=== PATIENT | male | born 1955 | race Caucasian/White ===

== ENCOUNTER → 2021-03-27 | Outpatient (CLI) | payer BC ==
[~2021-03-27] MED LIST: AMLO1CAP4 PO; HYDR-34 PO
--- NOTE | 2021-03-27 10:24 | Diagnostic Imaging Report ---
PROCEDURE: MR imaging cervical spine without contrast. TECHNIQUE: Multiplanar, multisequence MR imaging of the cervical spine was performed without contrast. INDICATION: Neck pain. COMPARISON: none. FINDINGS: No acute fracture or dislocation is seen in the cervical spine. There is normal alignment of the cervical spine. The vertebral body heights and disc spaces are well maintained. The bone marrow signal is unremarkable. No focal osseous lesions. The craniocervical junction is maintained. The cervical spinal cord demonstrates normal intrinsic signal. No epidural collections are seen. The included brainstem and posterior fossa have normal appearance. Multilevel degenerative changes are seen in the cervical spine with posterior disc bulges and uncovertebral arthropathy. C2-C3: No significant spinal canal or foraminal stenosis. C3-C4: Posterior disc bulge, uncovertebral arthropathy, and buckling of ligamentum flavum results in moderate to severe spinal canal stenosis and moderate right and qtqi-ry-ytuhacrt left foraminal stenosis. C4-C5: Posterior disc bulge, uncovertebral arthropathy, and buckling of ligamentum flavum results in severe spinal canal stenosis and qqdz-cs-vuwlviru right and moderate left foraminal stenosis. C5-C6: Posterior disc bulge, uncovertebral arthropathy, and buckling of the ligamentum flavum results in severe spinal canal stenosis and mild bilateral foraminal narrowing. C6-C7: Posterior disc bulge, uncovertebral arthropathy, and buckling of the ligamentum flavum results in moderate to severe spinal canal stenosis and mild right and mjoq-tl-iwbskjbw left foraminal narrowing. C7-T1: No significant spinal canal or foraminal stenosis. The soft tissues of neck are unremarkable. IMPRESSION: 1. No acute fracture or dislocation of the cervical spine. 2. Multilevel degenerative changes in the cervical spine, greatest at C3-C4, C4-C5, C5-C6, and C6-C7. Dictated by: Dictated on workstation # [id number]
== END ==
LOC: RAD 09:06
PROVIDERS: ATTEND Family Medicine
DX: M47.812 Spondylosis without myelopathy or radiculopathy, cervical region (principal)
CPT/HCPCS: 72141

== ENCOUNTER → 2021-12-19 | Outpatient (CLI) | payer BC | LOC: LAB FS 10:01 | PROVIDERS: ATTEND Orthopaedic Surgery Orthopaedic Trauma | DX: Z01.812 Encounter for preprocedural laboratory examination (principal); Z20.822 Contact with and (suspected) exposure to COVID-19 | CPT/HCPCS: 87636 ==

== ENCOUNTER → 2022-04-06 | Outpatient (CLI) | payer BC ==
[2022-04-06 17:14] LABS: BASOPHILS # (AUTO) 0.1 10^3/uL (0.0-0.1); BASOPHILS % (AUTO) 1 % (0-10); EOSINOPHILS # (AUTO) 0.9 10^3/uL (0.0-0.3); EOSINOPHILS % (AUTO) 7 % (0-10); HEMATOCRIT 40 % (40-54); HEMOGLOBIN 13.2 g/dL (13.3-17.7); LYMPHOCYTES # (AUTO) 2.4 10^3/uL (1.0-4.0); LYMPHOCYTES % (AUTO) 18 % (12-44); MEAN CORPUSCULAR HEMOGLOBIN 28 pg (25-34); MEAN CORPUSCULAR HGB CONC 33 g/dL (32-36); MEAN CORPUSCULAR VOLUME 86 fL (80-99); MEAN PLATELET VOLUME 10.5 fL (9.0-12.2); MONOCYTES # (AUTO) 1.4 10^3/uL (0.0-1.0); MONOCYTES % (AUTO) 11 % (0-12); NEUTROPHILS # (AUTO) 8.2 10^3/uL (1.8-7.8); NEUTROPHILS % (AUTO) 62 % (42-75); PLATELET COUNT 321 10^3/uL (130-400); WHITE BLOOD COUNT 13.2 10^3/uL (4.3-11.0)
[2022-04-06 17:56] LABS: ALBUMIN 3.8 GM/DL (3.2-4.5); BILIRUBIN,TOTAL 0.2 MG/DL (0.1-1.0); CALCIUM 8.9 MG/DL (8.5-10.1); CREATININE SERUM 0.8 MG/DL (0.60-1.30); POTASSIUM 3.7 MMOL/L (3.6-5.0); TOTAL PROTEIN 6.9 GM/DL (6.4-8.2)
[2022-04-06 18:02] LABS: ERYTHROCYTE SEDIMENTATION RATE 15 MM/HR (0-30)
== END ==
LOC: IHC 17:01
PROVIDERS: ATTEND Orthopaedic Surgery Orthopaedic Trauma
DX: I10 Essential (primary) hypertension (principal)
CPT/HCPCS: 80053; 85025; 85652; 86141

== ENCOUNTER → 2022-04-13 | Outpatient (CLI) | payer BC ==
[2022-04-13 17:35] LABS: ALBUMIN 4.1 GM/DL (3.2-4.5); BILIRUBIN,TOTAL 0.2 MG/DL (0.1-1.0); CALCIUM 8.9 MG/DL (8.5-10.1); CREATININE SERUM 0.73 MG/DL (0.60-1.30); POTASSIUM 4.7 MMOL/L (3.6-5.0); TOTAL PROTEIN 6.9 GM/DL (6.4-8.2)
== END ==
LOC: IHC 16:39
PROVIDERS: ATTEND Internal Medicine Infectious Disease
DX: T84.296A Other mechanical complication of internal fixation device of vertebrae, initial encounter (principal)
CPT/HCPCS: 80053; 86141

== ENCOUNTER → 2022-04-14 | Outpatient (CLI) | payer BC ==
[2022-04-14 14:20] LABS: BASOPHILS # (AUTO) 0.1 10^3/uL (0.0-0.1); BASOPHILS % (AUTO) 1 % (0-10); EOSINOPHILS # (AUTO) 0.3 10^3/uL (0.0-0.3); EOSINOPHILS % (AUTO) 3 % (0-10); HEMATOCRIT 42 % (40-54); HEMOGLOBIN 13.6 g/dL (13.3-17.7); LYMPHOCYTES # (AUTO) 1.9 10^3/uL (1.0-4.0); LYMPHOCYTES % (AUTO) 17 % (12-44); MEAN CORPUSCULAR HEMOGLOBIN 28 pg (25-34); MEAN CORPUSCULAR HGB CONC 32 g/dL (32-36); MEAN CORPUSCULAR VOLUME 88 fL (80-99); MEAN PLATELET VOLUME 9.4 fL (9.0-12.2); MONOCYTES # (AUTO) 0.8 10^3/uL (0.0-1.0); MONOCYTES % (AUTO) 7 % (0-12); NEUTROPHILS # (AUTO) 8.2 10^3/uL (1.8-7.8); NEUTROPHILS % (AUTO) 72 % (42-75); PLATELET COUNT 400 10^3/uL (130-400); WHITE BLOOD COUNT 11.4 10^3/uL (4.3-11.0)
[2022-04-14 14:47] LABS: ERYTHROCYTE SEDIMENTATION RATE 19 MM/HR (0-30)
== END ==
LOC: IHC 14:02
PROVIDERS: ATTEND Family Medicine
DX: T84.296A Other mechanical complication of internal fixation device of vertebrae, initial encounter (principal); Z79.2 Long term (current) use of antibiotics; B95.61 Methicillin susceptible Staphylococcus aureus infection as the cause of diseases classified elsewhere; N40.0 Benign prostatic hyperplasia without lower urinary tract symptoms
CPT/HCPCS: 85025; 85652

== ENCOUNTER → 2022-04-21 | Outpatient (CLI) | payer BC ==
[2022-04-21 16:05] LABS: HEMATOCRIT 37 % (40-54); HEMOGLOBIN 11.9 g/dL (13.3-17.7); MEAN CORPUSCULAR HEMOGLOBIN 28 pg (25-34); MEAN CORPUSCULAR HGB CONC 32 g/dL (32-36); MEAN CORPUSCULAR VOLUME 88 fL (80-99); MEAN PLATELET VOLUME 10.7 fL (9.0-12.2); PLATELET COUNT 372 10^3/uL (130-400); WHITE BLOOD COUNT 11.2 10^3/uL (4.3-11.0)
[2022-04-21 16:06] LABS: BASOPHILS # (AUTO) 0.1 10^3/uL (0.0-0.1); BASOPHILS % (AUTO) 1 % (0-10); EOSINOPHILS # (AUTO) 0.8 10^3/uL (0.0-0.3); EOSINOPHILS % (AUTO) 7 % (0-10); LYMPHOCYTES # (AUTO) 2.1 X 10^3 (1.0-4.0); LYMPHOCYTES % (AUTO) 18 % (12-44); MONOCYTES % (AUTO) 9 % (0-12); NEUTROPHILS # (AUTO) 7.1 X 10^3 (1.8-7.8); NEUTROPHILS % (AUTO) 64 % (42-75)
[2022-04-21 16:07] LABS: ALKALINE PHOSPHATASE 73 U/L (40-136); BILIRUBIN,TOTAL 0.2 MG/DL (0.1-1.0); BUN/CREATININE RATIO 12; CARBON DIOXIDE 26 MMOL/L (21-32); CHLORIDE 99 MMOL/L (98-107); CREATININE SERUM 0.69 MG/DL (0.60-1.30); ERYTHROCYTE SEDIMENTATION RATE 62 MM/HR (0-30); GFR ESTIMATED 103; GLUCOSE 113 MG/DL (70-105); POTASSIUM 3.8 MMOL/L (3.6-5.0); SODIUM 139 MMOL/L (135-145)
[2022-04-21 16:08] LABS: ALANINE AMINOTRANSFERASE < 5 U/L (0-55); ALBUMIN 3.4 GM/DL (3.2-4.5)
== END ==
LOC: IHC 15:04
PROVIDERS: ATTEND Internal Medicine Infectious Disease
DX: T84.296A Other mechanical complication of internal fixation device of vertebrae, initial encounter (principal); B95.61 Methicillin susceptible Staphylococcus aureus infection as the cause of diseases classified elsewhere
CPT/HCPCS: 80053; 85025; 85652; 86141

== ENCOUNTER → 2022-04-27 | Outpatient (CLI) | payer BC ==
[2022-04-27 12:41] LABS: BASOPHILS # (AUTO) 0.1 10^3/uL (0.0-0.1); BASOPHILS % (AUTO) 1 % (0-10); EOSINOPHILS # (AUTO) 0.6 10^3/uL (0.0-0.3); EOSINOPHILS % (AUTO) 7 % (0-10); HEMATOCRIT 40 % (40-54); HEMOGLOBIN 12.9 g/dL (13.3-17.7); LYMPHOCYTES # (AUTO) 1.7 10^3/uL (1.0-4.0); LYMPHOCYTES % (AUTO) 18 % (12-44); MEAN CORPUSCULAR HEMOGLOBIN 28 pg (25-34); MEAN CORPUSCULAR HGB CONC 32 g/dL (32-36); MEAN CORPUSCULAR VOLUME 88 fL (80-99); MEAN PLATELET VOLUME 8.9 fL (9.0-12.2); MONOCYTES # (AUTO) 0.8 10^3/uL (0.0-1.0); MONOCYTES % (AUTO) 9 % (0-12); NEUTROPHILS # (AUTO) 6.3 10^3/uL (1.8-7.8); NEUTROPHILS % (AUTO) 65 % (42-75); PLATELET COUNT 522 10^3/uL (130-400); WHITE BLOOD COUNT 9.7 10^3/uL (4.3-11.0)
[2022-04-27 13:05] LABS: BILIRUBIN,TOTAL 0.2 MG/DL (0.1-1.0); CALCIUM 9.2 MG/DL (8.5-10.1); CREATININE SERUM 0.85 MG/DL (0.60-1.30); POTASSIUM 4.1 MMOL/L (3.6-5.0)
[2022-04-27 13:06] LABS: ALBUMIN 3.7 GM/DL (3.2-4.5); TOTAL PROTEIN 6.9 GM/DL (6.4-8.2)
[2022-04-27 13:08] LABS: ERYTHROCYTE SEDIMENTATION RATE 37 MM/HR (0-30)
== END ==
LOC: IHC 12:26
PROVIDERS: ATTEND Internal Medicine Infectious Disease
DX: T84.296A Other mechanical complication of internal fixation device of vertebrae, initial encounter (principal)
CPT/HCPCS: 80053; 85025; 85652; 86141

== ENCOUNTER → 2022-05-04 | Outpatient (CLI) | payer BC ==
[2022-05-04 12:52] LABS: BASOPHILS # (AUTO) 0.1 10^3/uL (0.0-0.1); BASOPHILS % (AUTO) 1 % (0-10); EOSINOPHILS # (AUTO) 0.4 10^3/uL (0.0-0.3); EOSINOPHILS % (AUTO) 4 % (0-10); HEMATOCRIT 41 % (40-54); HEMOGLOBIN 13.6 g/dL (13.3-17.7); LYMPHOCYTES # (AUTO) 1.6 10^3/uL (1.0-4.0); LYMPHOCYTES % (AUTO) 20 % (12-44); MEAN CORPUSCULAR HEMOGLOBIN 29 pg (25-34); MEAN CORPUSCULAR HGB CONC 33 g/dL (32-36); MEAN CORPUSCULAR VOLUME 86 fL (80-99); MEAN PLATELET VOLUME 9.4 fL (9.0-12.2); MONOCYTES # (AUTO) 0.7 10^3/uL (0.0-1.0); MONOCYTES % (AUTO) 9 % (0-12); NEUTROPHILS # (AUTO) 5.1 10^3/uL (1.8-7.8); NEUTROPHILS % (AUTO) 65 % (42-75); PLATELET COUNT 430 10^3/uL (130-400); WHITE BLOOD COUNT 7.9 10^3/uL (4.3-11.0)
[2022-05-04 13:16] LABS: ALKALINE PHOSPHATASE 69 U/L (40-136); BILIRUBIN,TOTAL 0.2 MG/DL (0.1-1.0); BUN/CREATININE RATIO 9; CALCIUM 9.3 MG/DL (8.5-10.1); CARBON DIOXIDE 28 MMOL/L (21-32); CHLORIDE 102 MMOL/L (98-107); CREATININE SERUM 0.76 MG/DL (0.60-1.30); GFR ESTIMATED 100; GLUCOSE 86 MG/DL (70-105); POTASSIUM 4.7 MMOL/L (3.6-5.0); SODIUM 140 MMOL/L (135-145)
[2022-05-04 13:17] LABS: ALANINE AMINOTRANSFERASE < 5 U/L (0-55); ALBUMIN 4.3 GM/DL (3.2-4.5); TOTAL PROTEIN 6.6 GM/DL (6.4-8.2)
[2022-05-04 13:38] LABS: BAND NEUTROPHILS 1 %; BASOPHILS % (MANUAL) 0 %; EOSINOPHILS % (MANUAL) 4 %; ERYTHROCYTE SEDIMENTATION RATE 12 MM/HR (0-30); LYMPHOCYTES % (MANUAL) 19 %; MONOCYTES % (MANUAL) 6 %; NEUTROPHILS % (MANUAL) 70 %
== END ==
LOC: IHC 12:37
PROVIDERS: ATTEND Internal Medicine Infectious Disease
DX: T84.63XA Infection and inflammatory reaction due to internal fixation device of spine, initial encounter (principal); B95.61 Methicillin susceptible Staphylococcus aureus infection as the cause of diseases classified elsewhere
CPT/HCPCS: 80053; 85007; 85027; 85652; 86141

== ENCOUNTER → 2022-05-14 | Outpatient (CLI) | payer BC ==
[2022-05-14 10:36] LABS: BASOPHILS # (AUTO) 0.1 10^3/uL (0.0-0.1); BASOPHILS % (AUTO) 0 % (0-10); EOSINOPHILS # (AUTO) 0.4 10^3/uL (0.0-0.3); EOSINOPHILS % (AUTO) 3 % (0-10); HEMATOCRIT 36 % (40-54); HEMOGLOBIN 11.8 g/dL (13.3-17.7); LYMPHOCYTES # (AUTO) 0.8 10^3/uL (1.0-4.0); LYMPHOCYTES % (AUTO) 6 % (12-44); MEAN CORPUSCULAR HEMOGLOBIN 28 pg (25-34); MEAN CORPUSCULAR HGB CONC 33 g/dL (32-36); MEAN CORPUSCULAR VOLUME 85 fL (80-99); MEAN PLATELET VOLUME 9.5 fL (9.0-12.2); MONOCYTES # (AUTO) 1.9 10^3/uL (0.0-1.0); MONOCYTES % (AUTO) 13 % (0-12); NEUTROPHILS # (AUTO) 11.4 10^3/uL (1.8-7.8); NEUTROPHILS % (AUTO) 78 % (42-75); PLATELET COUNT 396 10^3/uL (130-400); WHITE BLOOD COUNT 14.8 10^3/uL (4.3-11.0)
[2022-05-14 11:21] LABS: BAND NEUTROPHILS 7 %; EOSINOPHILS % (MANUAL) 3 %; LYMPHOCYTES % (MANUAL) 8 %; MONOCYTES % (MANUAL) 14 %; NEUTROPHILS % (MANUAL) 68 %
[2022-05-14 11:23] LABS: PLATELET ESTIMATE NORMAL; RBC MORPH NORMAL
[2022-05-14 11:24] LABS: ERYTHROCYTE SEDIMENTATION RATE 60 MM/HR (0-30)
[2022-05-14 12:42] LABS: ALBUMIN 3.2 GM/DL (3.2-4.5); BILIRUBIN,TOTAL 0.2 MG/DL (0.1-1.0); CALCIUM 9.1 MG/DL (8.5-10.1); CREATININE SERUM 0.98 MG/DL (0.60-1.30); POTASSIUM 3.7 MMOL/L (3.6-5.0); TOTAL PROTEIN 6.4 GM/DL (6.4-8.2)
== END ==
LOC: IHC 09:58
PROVIDERS: ATTEND Internal Medicine Infectious Disease
DX: Z45.2 Encounter for adjustment and management of vascular access device (principal); T84.296A Other mechanical complication of internal fixation device of vertebrae, initial encounter; T84.63XA Infection and inflammatory reaction due to internal fixation device of spine, initial encounter; B95.61 Methicillin susceptible Staphylococcus aureus infection as the cause of diseases classified elsewhere; Z98.1 Arthrodesis status
CPT/HCPCS: 80053; 84145; 85007; 85027; 85652; 86141

== ENCOUNTER 2022-05-16 12:03 | Emergency (ER) | payer BC ==
[~2022-05-16] VITALS: Ht 167 cm; Wt 76.0 kg
--- NOTE | 2022-05-16 12:17 | ED Integumentary General ---
General Chief Complaint: Skin/Wound Problems Stated Complaint: WOUND CHECK History of Present Illness Date Seen by Provider: May 16, 2022 Time Seen by Provider: 12:12 Initial Comments 66-year-old male here from clinic. Patient woke up this morning and noted that he had part of his incision on the posterior neck from a surgery done about a month ago opened up and he had some purulent drainage out of it. Patient has been been on antibiotics this whole time. Patient had surgery on his C-spine. He was then noted to have infection and had the surgery and they found that he had infection from the previous surgery. They went in and fix that. And they went posteriorly to sure of his neck and insert rods. Patient has been on IV antibiotics the whole time until about when he switched over to oral antibiotics. He is following with infectious infectious disease. This morning he woke up and felt some drainage down the back of his neck. Appears that in the middle of the incision it opened up. He has been in neck collar all time. Patient previously had a little bit of an elevation in white count. Currently not in any pain. Currently not in having any fever. No current drainage. Timing/Duration: this morning Severity: mild Allergies and Home Medications Allergies Coded Allergies: No Known Drug Allergies (Unverified , 08/14/14) Patient Home Medication List Home Medication List Reviewed: Yes Amlodipine Besylate/Benazepril (Lotrel 5-10 Mg Capsule) 1 Cap Capsule, 1 EACH PO DAILY, (Reported) Entered as Reported by: LIN LAWSON on 08/13/14 1201 Hydrocodone Bit/Acetaminophen (Lortab 7.5 Mg Tablet) 1 Ea Tablet, 1 EA PO Q4H Prescribed by: MIGEL MEDINA on 02/01/15 0912 Review of Systems Review of Systems Constitutional: see HPI Past Xghmwud-Rfknmu-Odkuhp Hx Patient Social History Tobacco Use?: No Past Medical History Reproductive Disorders: No Sexually Transmitted Disease: Yes HIV/AIDS: No Fractures Loss of Vision: Denies Hearing Impairment: Deaf Adverse Reaction/Blood Tranf: No Physical Exam Vital Signs Vital Signs - First Documented 05/16/22 12:09 Temp 36.4 Pulse 77 Resp 16 B/P (MAP) 163/86 (111) Pulse Ox 98 O2 Delivery Room Air Capillary Refill : General Appearance: WD/WN, no apparent distress Neck: non-tender, limited range of motion Skin: normal color, warm/dry, other (On posterior neck there is a small 1cm opening in the middle of the incision. the rest of the incisoin appears to be intact. clear membrane underneath of incision. no purulent drainage currently. appears to be cavernous underneath incision.) Progress/Results/Core Measures Results/Orders Lab Results Laboratory Tests Test 05/16/22 13:50 Range/Units White Blood Count 13.8 H 4.3-11.0 10^3/uL Red Blood Count 4.26 L 4.30-5.52 10^6/uL Hemoglobin 11.9 L 13.3-17.7 g/dL Hematocrit 37 L 40-54 % Mean Corpuscular Volume 86 80-99 fL Mean Corpuscular Hemoglobin 28 25-34 pg Mean Corpuscular Hemoglobin Concent 32 32-36 g/dL Red Cell Distribution Width 14.0 10.0-14.5 % Platelet Count 431 H 130-400 10^3/uL Mean Platelet Volume 8.5 L 9.0-12.2 fL Immature Granulocyte % (Auto) 4 % Neutrophils (%) (Auto) 71 42-75 % Lymphocytes (%) (Auto) 10 L 12-44 % Monocytes (%) (Auto) 11 0-12 % Eosinophils (%) (Auto) 4 0-10 % Basophils (%) (Auto) 1 0-10 % Neutrophils # (Auto) 9.7 H 1.8-7.8 10^3/uL Lymphocytes # (Auto) 1.4 1.0-4.0 10^3/uL Monocytes # (Auto) 1.5 H 0.0-1.0 10^3/uL Eosinophils # (Auto) 0.6 H 0.0-0.3 10^3/uL Basophils # (Auto) 0.1 0.0-0.1 10^3/uL Immature Granulocyte # (Auto) 0.5 H 0.0-0.1 10^3/uL Neutrophils % (Manual) 80 % Lymphocytes % (Manual) 6 % Monocytes % (Manual) 9 % Eosinophils % (Manual) 5 % My Orders Orders - MENDY CORCORAN MD Ct Neck (Soft Tissue) Wo (05/16/22 12:23) Cbc And Manual Diff (05/16/22 13:45) Vital Signs/I&O 05/16/22 05/16/22 12:09 13:30 Temp 36.4 36.4 Pulse 77 71 Resp 16 16 B/P (MAP) 163/86 (111) 140/84 Pulse Ox 98 97 O2 Delivery Room Air Room Air Progress Progress Note : Time: 14:21 Progress Note Placed phone call with [employer]. Dr. MARQUEZ's nurse took a message as Dr. MARQUEZ is in surgery currently. Pending callback. CT Read Date: May 16, 2022 CT Read Time: 13:53 CT Results/Progress Notes [place], [place] NAME: LYRIC MOLINA [employer] REC#: [id number] PT STATUS: REG ER : 1955 PHYSICIAN: MENDY CORCORAN MD ADMIT DATE: 05/16/22/ER FS Draft Date of Exam:05/16/22 CT NECK (SOFT TISSUE) WO CLINICAL INDICATIONS: Surgical wound opened up this morning and drained purulent material. Patient has history of surgery. History of infection with antibiotic intervention. EXAM: Axial CT scan the neck soft tissue without contrast. Sagittal and coronal reformatted images are created. COMPARISON: MRI of the cervical spine without contrast dated 03/27/2021. FINDINGS: There is interval postop changes with C3-C6 anterior cervical disk fusion with C5 corpectomy and interbody strut graft. Interbody disk spacer at C3-C4 level seen. There is posterior spinal fusion hardware seen from the C3-T1 level with bilateral spinal rods and pedicle screws. There is an open wound seen posterior to the neck at the C5 level. There is a small amount of fluid seen adjacent to the C7 and T1 spinous process region. This fluid collection measures roughly 2.1 cm and 1.6 cm in greatest axial dimension at the C7-T1 level. There is no significant fluid in the air-filled cavity spanning from the C3-C6 level. There is mild adjacent fat stranding. There are degenerative spurs involving the visualized upper thoracic spine and upper cervical spine. There is no significant bony central canal narrowing. There is moderate right C3-C4 bony neural foramen narrowing due to facet arthropathy. Visualized upper lung cantu are clear. Partially visualized roughly 7 mm low-density nodule involving left thyroid lobe. IMPRESSION: 1: Compared to prior MRI, there is interval postop changes seen from the C3-T1 level, as described above. There is an open wound in the posterior aspect of the neck which is predominantly filled with air. There is a small amount of fluid in the wound area at the C7-T1 level. There is no evidence of bony erosive or destructive process. There is no concern for osteomyelitis. 2: Cervical spine degenerative disease. 3: There is small low-density nodule involving left thyroid lobe. Nonemergent thyroid ultrasound would better evaluate. Dictated on workstation # [id number] Dict: 05/16/22 1259 Trans: 05/16/22 1309 CV [id number] Interpreted by: LUNA BRANDT MD Electronically signed by: Consults : Consulting Physician: MIRIAM JUARES DO Consults Notes Spoke with Dr. Juares via the [facility] after-hours service. Discussed what was going on with the patient and Dr. Juares said that we would just keep it covered keep and continue his antibiotics and he would follow-up with him in the office on Wednesday or Wednesday. Departure Impression Primary Impression: Open neck wound Qualified Codes: S11.90XA - Unspecified open wound of unspecified part of n brenda, initial encounter Additional Impression: History of cervical spinal surgery Disposition: 01 HOME, SELF-CARE Condition: Stable Departure-Patient Inst. Decision time for Depature: 15:00 Referrals: ADRIENNE SEALS MD (PCP) Primary Care Physician Patient Instructions: Wound Care (DC), Wound Care Add. Discharge Instructions: Keep wound covered and change as the dressing becomes saturated. Call Dr. Juares's office first thing Wednesday morning to schedule appointment. ER as needed for systemic symptoms as discussed. All discharge instructions reviewed with patient and/or family. Voiced understa nding. MENDY CORCORAN MD May 16, 2022 12:17
--- NOTE | 2022-05-16 13:10 | Diagnostic Imaging Report ---
CLINICAL INDICATIONS: Surgical wound opened up this morning and drained purulent material. Patient has history of surgery. History of infection with antibiotic intervention. EXAM: Axial CT scan the neck soft tissue without contrast. Sagittal and coronal reformatted images are created. COMPARISON: MRI of the cervical spine without contrast dated 03/27/2021. FINDINGS: There is interval postop changes with C3-C6 anterior cervical disk fusion with C5 corpectomy and interbody strut graft. Interbody disk spacer at C3-C4 level seen. There is posterior spinal fusion hardware seen from the C3-T1 level with bilateral spinal rods and pedicle screws. There is an open wound seen posterior to the neck at the C5 level. There is a small amount of fluid seen adjacent to the C7 and T1 spinous process region. This fluid collection measures roughly 2.1 cm and 1.6 cm in greatest axial dimension at the C7-T1 level. There is no significant fluid in the air-filled cavity spanning from the C3-C6 level. There is mild adjacent fat stranding. There are degenerative spurs involving the visualized upper thoracic spine and upper cervical spine. There is no significant bony central canal narrowing. There is moderate right C3-C4 bony neural foramen narrowing due to facet arthropathy. Visualized upper lung cantu are clear. Partially visualized roughly 7 mm low-density nodule involving left thyroid lobe. IMPRESSION: 1: Compared to prior MRI, there is interval postop changes seen from the C3-T1 level, as described above. There is an open wound in the posterior aspect of the neck which is predominantly filled with air. There is a small amount of fluid in the wound area at the C7-T1 level. There is no evidence of bony erosive or destructive process. There is no concern for osteomyelitis. 2: Cervical spine degenerative disease. 3: There is small low-density nodule involving left thyroid lobe. Nonemergent thyroid ultrasound would better evaluate. Dictated by: Dictated on workstation # [id number]
[2022-05-16 13:30] VITALS: BP 140/84
[2022-05-16 13:53] LABS: BASOPHILS # (AUTO) 0.1 10^3/uL (0.0-0.1); BASOPHILS % (AUTO) 1 % (0-10); EOSINOPHILS # (AUTO) 0.6 10^3/uL (0.0-0.3); EOSINOPHILS % (AUTO) 4 % (0-10); HEMATOCRIT 37 % (40-54); HEMOGLOBIN 11.9 g/dL (13.3-17.7); LYMPHOCYTES # (AUTO) 1.4 10^3/uL (1.0-4.0); LYMPHOCYTES % (AUTO) 10 % (12-44); MEAN CORPUSCULAR HEMOGLOBIN 28 pg (25-34); MEAN CORPUSCULAR HGB CONC 32 g/dL (32-36); MEAN CORPUSCULAR VOLUME 86 fL (80-99); MEAN PLATELET VOLUME 8.5 fL (9.0-12.2); MONOCYTES # (AUTO) 1.5 10^3/uL (0.0-1.0); MONOCYTES % (AUTO) 11 % (0-12); NEUTROPHILS # (AUTO) 9.7 10^3/uL (1.8-7.8); NEUTROPHILS % (AUTO) 71 % (42-75); PLATELET COUNT 431 10^3/uL (130-400); WHITE BLOOD COUNT 13.8 10^3/uL (4.3-11.0)
[2022-05-16 14:08] LABS: LYMPHOCYTES % (MANUAL) 6 %
[2022-05-16 14:09] LABS: EOSINOPHILS % (MANUAL) 5 %; MONOCYTES % (MANUAL) 9 %; NEUTROPHILS % (MANUAL) 80 %
== END 2022-05-16 15:02 | disposition home or self-care (01) ==
LOC: EDUNIT# 12:03 → ER FS 12:05
DX: T81.31XA Disruption of external operation (surgical) wound, not elsewhere classified, initial encounter (principal); Z98.890 Other specified postprocedural states; Z28.310 Unvaccinated for COVID-19
CPT/HCPCS: 36415; 70490; 85007; 85027

== ENCOUNTER → 2022-06-01 | Outpatient (CLI) | payer BC ==
[2022-06-01 15:46] LABS: BASOPHILS # (AUTO) 0.1 10^3/uL (0.0-0.1); BASOPHILS % (AUTO) 1 % (0-10); EOSINOPHILS # (AUTO) 0.4 10^3/uL (0.0-0.3); EOSINOPHILS % (AUTO) 4 % (0-10); HEMATOCRIT 39 % (40-54); HEMOGLOBIN 12.4 g/dL (13.3-17.7); LYMPHOCYTES # (AUTO) 1.9 10^3/uL (1.0-4.0); LYMPHOCYTES % (AUTO) 20 % (12-44); MEAN CORPUSCULAR HEMOGLOBIN 27 pg (25-34); MEAN CORPUSCULAR HGB CONC 32 g/dL (32-36); MEAN CORPUSCULAR VOLUME 85 fL (80-99); MEAN PLATELET VOLUME 10.2 fL (9.0-12.2); MONOCYTES # (AUTO) 0.8 10^3/uL (0.0-1.0); MONOCYTES % (AUTO) 9 % (0-12); NEUTROPHILS # (AUTO) 6.5 10^3/uL (1.8-7.8); NEUTROPHILS % (AUTO) 67 % (42-75); PLATELET COUNT 400 10^3/uL (130-400); WHITE BLOOD COUNT 9.7 10^3/uL (4.3-11.0)
[2022-06-01 18:05] LABS: ERYTHROCYTE SEDIMENTATION RATE 29 MM/HR (0-30)
[2022-06-01 18:07] LABS: POTASSIUM 3.6 MMOL/L (3.6-5.0)
[2022-06-01 18:08] LABS: BILIRUBIN,TOTAL 0.2 MG/DL (0.1-1.0); CALCIUM 9.2 MG/DL (8.5-10.1); CREATININE SERUM 0.94 MG/DL (0.60-1.30)
[2022-06-01 18:09] LABS: TOTAL PROTEIN 6.7 GM/DL (6.4-8.2)
== END ==
LOC: LAB FS 15:21
PROVIDERS: ATTEND Internal Medicine Infectious Disease
DX: T84.296A Other mechanical complication of internal fixation device of vertebrae, initial encounter (principal); B95.61 Methicillin susceptible Staphylococcus aureus infection as the cause of diseases classified elsewhere
CPT/HCPCS: 36415; 80053; 82550; 85025; 85652; 86141

== ENCOUNTER → 2022-06-08 | Outpatient (CLI) | payer BC ==
[2022-06-08 12:50] LABS: BASOPHILS # (AUTO) 0.1 10^3/uL (0.0-0.1); BASOPHILS % (AUTO) 1 % (0-10); EOSINOPHILS # (AUTO) 0.3 10^3/uL (0.0-0.3); EOSINOPHILS % (AUTO) 3 % (0-10); HEMATOCRIT 38 % (40-54); HEMOGLOBIN 12.4 g/dL (13.3-17.7); LYMPHOCYTES # (AUTO) 1.5 10^3/uL (1.0-4.0); LYMPHOCYTES % (AUTO) 17 % (12-44); MEAN CORPUSCULAR HEMOGLOBIN 28 pg (25-34); MEAN CORPUSCULAR HGB CONC 33 g/dL (32-36); MEAN CORPUSCULAR VOLUME 85 fL (80-99); MEAN PLATELET VOLUME 10.2 fL (9.0-12.2); MONOCYTES # (AUTO) 0.8 10^3/uL (0.0-1.0); MONOCYTES % (AUTO) 10 % (0-12); NEUTROPHILS # (AUTO) 5.9 10^3/uL (1.8-7.8); NEUTROPHILS % (AUTO) 69 % (42-75); PLATELET COUNT 337 10^3/uL (130-400); WHITE BLOOD COUNT 8.5 10^3/uL (4.3-11.0)
[2022-06-08 13:11] LABS: CARBON DIOXIDE 26 MMOL/L (21-32); CHLORIDE 102 MMOL/L (98-107); POTASSIUM 4.1 MMOL/L (3.6-5.0); SODIUM 140 MMOL/L (135-145)
[2022-06-08 13:12] LABS: ALANINE AMINOTRANSFERASE 11 U/L (0-55); ALBUMIN 4.1 GM/DL (3.2-4.5); ALKALINE PHOSPHATASE 71 U/L (40-136); BILIRUBIN,TOTAL 0.2 MG/DL (0.1-1.0); BUN/CREATININE RATIO 10; CALCIUM 9.2 MG/DL (8.5-10.1); CREATININE SERUM 0.88 MG/DL (0.60-1.30); GFR ESTIMATED 96; GLUCOSE 94 MG/DL (70-105); TOTAL PROTEIN 6.7 GM/DL (6.4-8.2)
[2022-06-08 13:53] LABS: ERYTHROCYTE SEDIMENTATION RATE 27 MM/HR (0-30)
[2022-06-08 15:04] LABS: CREATINE KINASE 97 U/L (30-200)
== END ==
LOC: IHC 12:22
PROVIDERS: ATTEND Internal Medicine Infectious Disease
DX: T84.296A Other mechanical complication of internal fixation device of vertebrae, initial encounter (principal)
CPT/HCPCS: 80053; 82550; 85025; 85652; 86141

== ENCOUNTER → 2022-06-15 | Outpatient (CLI) | payer BC ==
[2022-06-15 12:33] LABS: BASOPHILS # (AUTO) 0.1 10^3/uL (0.0-0.1); BASOPHILS % (AUTO) 1 % (0-10); EOSINOPHILS # (AUTO) 0.4 10^3/uL (0.0-0.3); EOSINOPHILS % (AUTO) 5 % (0-10); HEMATOCRIT 40 % (40-54); HEMOGLOBIN 13.2 g/dL (13.3-17.7); LYMPHOCYTES # (AUTO) 1.3 10^3/uL (1.0-4.0); LYMPHOCYTES % (AUTO) 15 % (12-44); MEAN CORPUSCULAR HEMOGLOBIN 28 pg (25-34); MEAN CORPUSCULAR HGB CONC 33 g/dL (32-36); MEAN CORPUSCULAR VOLUME 85 fL (80-99); MEAN PLATELET VOLUME 10.1 fL (9.0-12.2); MONOCYTES # (AUTO) 0.9 10^3/uL (0.0-1.0); MONOCYTES % (AUTO) 11 % (0-12); NEUTROPHILS # (AUTO) 5.6 10^3/uL (1.8-7.8); NEUTROPHILS % (AUTO) 68 % (42-75); PLATELET COUNT 312 10^3/uL (130-400); WHITE BLOOD COUNT 8.3 10^3/uL (4.3-11.0)
[2022-06-15 12:53] LABS: CARBON DIOXIDE 27 MMOL/L (21-32); CHLORIDE 102 MMOL/L (98-107); POTASSIUM 3.9 MMOL/L (3.6-5.0); SODIUM 141 MMOL/L (135-145)
[2022-06-15 12:54] LABS: ALANINE AMINOTRANSFERASE 11 U/L (0-55); ALKALINE PHOSPHATASE 70 U/L (40-136); BILIRUBIN,TOTAL < 0.2 MG/DL (0.1-1.0); BUN/CREATININE RATIO 9; CALCIUM 9.5 MG/DL (8.5-10.1); CREATININE SERUM 0.86 MG/DL (0.60-1.30); GFR ESTIMATED 97; GLUCOSE 104 MG/DL (70-105); TOTAL PROTEIN 6.5 GM/DL (6.4-8.2)
[2022-06-15 12:55] LABS: ERYTHROCYTE SEDIMENTATION RATE 14 MM/HR (0-30)
[2022-06-15 15:32] LABS: CREATINE KINASE 72 U/L (30-200)
== END ==
LOC: IHC 12:15
PROVIDERS: ATTEND Internal Medicine Infectious Disease
DX: T84.296A Other mechanical complication of internal fixation device of vertebrae, initial encounter (principal); T84.63XA Infection and inflammatory reaction due to internal fixation device of spine, initial encounter
CPT/HCPCS: 80053; 82550; 85025; 85652; 86141

== ENCOUNTER → 2022-06-23 | Outpatient (CLI) | payer BC ==
[2022-06-23 10:11] LABS: BASOPHILS # (AUTO) 0.1 10^3/uL (0.0-0.1); BASOPHILS % (AUTO) 1 % (0-10); EOSINOPHILS # (AUTO) 0.3 10^3/uL (0.0-0.3); EOSINOPHILS % (AUTO) 4 % (0-10); HEMATOCRIT 41 % (40-54); HEMOGLOBIN 13.3 g/dL (13.3-17.7); LYMPHOCYTES # (AUTO) 1.3 10^3/uL (1.0-4.0); LYMPHOCYTES % (AUTO) 16 % (12-44); MEAN CORPUSCULAR HEMOGLOBIN 27 pg (25-34); MEAN CORPUSCULAR HGB CONC 33 g/dL (32-36); MEAN CORPUSCULAR VOLUME 84 fL (80-99); MONOCYTES # (AUTO) 0.6 10^3/uL (0.0-1.0); MONOCYTES % (AUTO) 8 % (0-12); NEUTROPHILS # (AUTO) 5.6 10^3/uL (1.8-7.8); NEUTROPHILS % (AUTO) 71 % (42-75); PLATELET COUNT 335 10^3/uL (130-400); WHITE BLOOD COUNT 7.9 10^3/uL (4.3-11.0)
[2022-06-23 11:04] LABS: ERYTHROCYTE SEDIMENTATION RATE 13 MM/HR (0-30)
[2022-06-23 12:43] LABS: CREATININE SERUM 0.95 MG/DL (0.60-1.30); POTASSIUM 3.7 MMOL/L (3.6-5.0)
[2022-06-23 12:44] LABS: BILIRUBIN,TOTAL 0.3 MG/DL (0.1-1.0); CALCIUM 9.3 MG/DL (8.5-10.1)
[2022-06-23 12:45] LABS: ALBUMIN 4.2 GM/DL (3.2-4.5); TOTAL PROTEIN 6.7 GM/DL (6.4-8.2)
== END ==
LOC: IHC 09:57
PROVIDERS: ATTEND Internal Medicine Infectious Disease
DX: T84.296A Other mechanical complication of internal fixation device of vertebrae, initial encounter (principal)
CPT/HCPCS: 80053; 82550; 85025; 85652; 86141

== ENCOUNTER → 2022-06-29 | Outpatient (CLI) | payer BC ==
[2022-06-29 16:15] LABS: BASOPHILS # (AUTO) 0.1 10^3/uL (0.0-0.1); BASOPHILS % (AUTO) 1 % (0-10); EOSINOPHILS # (AUTO) 0.2 10^3/uL (0.0-0.3); EOSINOPHILS % (AUTO) 3 % (0-10); HEMATOCRIT 44 % (40-54); HEMOGLOBIN 14.4 g/dL (13.3-17.7); LYMPHOCYTES # (AUTO) 1.4 10^3/uL (1.0-4.0); LYMPHOCYTES % (AUTO) 16 % (12-44); MEAN CORPUSCULAR HEMOGLOBIN 28 pg (25-34); MEAN CORPUSCULAR HGB CONC 33 g/dL (32-36); MEAN CORPUSCULAR VOLUME 86 fL (80-99); MEAN PLATELET VOLUME 10.3 fL (9.0-12.2); MONOCYTES # (AUTO) 0.8 10^3/uL (0.0-1.0); MONOCYTES % (AUTO) 9 % (0-12); NEUTROPHILS # (AUTO) 6.4 10^3/uL (1.8-7.8); NEUTROPHILS % (AUTO) 72 % (42-75); PLATELET COUNT 349 10^3/uL (130-400); WHITE BLOOD COUNT 8.8 10^3/uL (4.3-11.0)
[2022-06-29 16:33] LABS: BUN/CREATININE RATIO 9; CARBON DIOXIDE 25 MMOL/L (21-32); CHLORIDE 101 MMOL/L (98-107); CREATININE SERUM 0.85 MG/DL (0.60-1.30); GFR ESTIMATED 97; GLUCOSE 65 MG/DL (70-105); POTASSIUM 3.7 MMOL/L (3.6-5.0); SODIUM 145 MMOL/L (135-145)
[2022-06-29 16:34] LABS: ALANINE AMINOTRANSFERASE 15 U/L (0-55); ALBUMIN 4.3 GM/DL (3.2-4.5); ALKALINE PHOSPHATASE 68 U/L (40-136); BILIRUBIN,TOTAL 0.3 MG/DL (0.1-1.0); CALCIUM 9.3 MG/DL (8.5-10.1); TOTAL PROTEIN 7.2 GM/DL (6.4-8.2)
[2022-06-29 16:50] LABS: ERYTHROCYTE SEDIMENTATION RATE 8 MM/HR (0-30)
[2022-06-29 22:46] LABS: CREATINE KINASE 155 U/L (30-200)
== END ==
LOC: IHC 15:58
PROVIDERS: ATTEND Internal Medicine Infectious Disease
DX: T84.296A Other mechanical complication of internal fixation device of vertebrae, initial encounter (principal)
CPT/HCPCS: 80053; 82550; 85025; 85652; 86141